=== PATIENT | female | born 1965 | race Caucasian/White ===

== ENCOUNTER 2016-09-21 16:41 | Emergency (ER) | payer MEDICARE ==
[2016-09-21] MEDS ORDERED: AZITHROMYCIN 250 MG TAB As Ordered ONE (18:46)
[2016-09-21] MEDS ORDERED: predniSONE 20 MG TAB As Ordered ONE (18:47)
[2016-09-21] MEDS ORDERED: IBUPROFEN 800 MG TAB As Ordered ONE (18:47)
[2016-09-21] MEDS ORDERED: IPRATROPIUM 0.5MG/ALBUTEROL 2.5MG INH SOL UD 3ML (DUONEB)(J7620) As Ordered ONE (18:56)
--- NOTE | 2016-09-21 19:09 | REP ---
CHEST, TWO VIEWS: Two views of the chest are performed and compared to prior study of 10/10/2013. There is mild streaky left lower infiltrate in the retrocardiac region. Right lung appears clear. The heart is normal in size. Mediastinal silhouette is unremarkable. There are mild degenerative changes of the spine. IMPRESSION: Mild streaky left lower lobe infiltrate. Signed by Charlie Stokes MD 09/21/2016 07:18 P
[2016-09-21] MEDS ORDERED: LIDOCAINE 1% MDV 20ML VIAL As Ordered ONE (19:20)
[2016-09-21] MEDS ORDERED: cefTRIAXone SOD 1 GM VIAL (J0696) As Ordered ONE (19:20)
[2016-09-21] MEDS ORDERED: ALBUTEROL 90 MCG/ACT 8GM HFA INHALER As Ordered ONE (19:23)
[2016-09-21] MEDS ORDERED: ACETAMINOPHEN 325 MG TAB As Ordered ONE (19:55)
--- NOTE | 2016-09-21 20:34 | EDDOCDS ---
Nurse's Notes [facility] Name: Honey Carrasco Age: 50 yrs Sex: Female : 1965 Arrival Date: 09/21/2016 Time: 16:41 Bed Private MD: NO PRIMARY PHYSICIAN, . Diagnosis: Pneumonia due to other specified bacteria-left lower lobe;Cough;Fever, unspecified Presentation: 09/21 16:44 Presenting complaint: Patient states: pt c/o cough and "wheezing." onset of symptoms ead Monday. Pt states "my doctor told me to come here.". Adult Sepsis Screening: The patient does not have new or worsening altered mentation. Patient's respiratory rate is less than 22. Systolic blood pressure is greater than 100. Patient has a qSOFA score of 0- Negative Sepsis Screen. Suicide/Homicide risk assessment- the patient denies having any suicidal and/or homicidal ideations and does not present with any other emotional, behavioral or mental health complaints. 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 Transition of care: patient was not received from another setting of care. 16:44 Acuity: JUDITH Level 3 ead 16:44 Method Of Arrival: Walkin/Carried/Asstd ead Triage Assessment: 16:46 General: Appears in no apparent distress, Behavior is appropriate for age, cooperative. ead Pain: Location: chest Pain currently is 3 out of 10 on a pain scale. HIV screening NA for this visit Offered previously. Neurological: No deficits noted. EENT: Reports nasal congestion. Respiratory: Reports cough that is pain with cough. Derm: Skin is pink, warm & dry. DAT INSTRUCTOR: 16:46 LMP N/A - Post-menopause ead Historical: - Allergies: Naproxen (Rash); - Home Meds: 1. Vitamin C Oral daily - PMHx: none; - PSHx: ; Cataract Surgery- Bilateral; - Social history: Smoking status: Patient states was never smoker of tobacco. No barriers to communication noted, The patient speaks fluent Syrian, Speaks appropriately for age. - Family history: Not pertinent. - : The pt / caregiver states he / she is not on anticoagulants. Home medication list is obtained from the patient. - Exposure Risk Screening:: None identified. Screenin:50 Screening information is obtained from the patient. Fall risk: No risks identified. ttb Assistance ADL's: requires no assistance with activities of daily living. Abuse/DV Screen: The patient / caregiver reports he/she is: not in a situation that causes fear, pain or injury. Nutritional screening: No deficits noted. Advance Directives: Currently, there is no health care proxy. home support is adequate. Assessment: 18:50 Adult Sepsis Screening: The patient does not have new or worsening altered mentation. ttb Patient's respiratory rate is less than 22. Systolic blood pressure is greater than 100. Patient has a qSOFA score of 0- Negative Sepsis Screen. General: Appears in no apparent distress, uncomfortable, well nourished, well groomed, Behavior is appropriate for age, cooperative, pleasant. Neurological: Level of Consciousness is awake, alert. EENT: Reports nasal congestion nasal discharge. Cardiovascular: Chest pain is denied. Respiratory: Airway is patent Respiratory effort is even, unlabored, shallow, Reports shortness of breath cough that is the patient has moderate shortness of breath. Derm: Skin is normal. 19:28 Reassessment: Patient appears in no apparent distress at this time. pt given meds as ttb ordered and states she is comfortable going home. Breathing improved after treatments.. 20:03 Reassessment: Patient appears in no apparent distress at this time. Patient states ttb feeling better. pt states she feels comfortable going home -- however still feels ill. Family here to drive pt home. Temp increased -- PA aware. Meds given per orders. . Neurological: Level of Consciousness is awake, alert. Respiratory: Airway is patent Respiratory effort is even, unlabored, Respiratory pattern is regular, symmetrical, Reports shortness of breath improved since arrival. Vital Signs: 16:42 BP 107 / 76; Pulse 101; Resp 20; Temp 100.3(O); Pulse Ox 96% on R/A; Weight 79.38 kg dd6 (R); 20:03 BP 125 / 69; Pulse 108; Resp 20; Temp 101.3(TE); Pulse Ox 95% on R/A; Pain 2/10; ttb Vitals: 16:42 Log In Time: September 21, 2016 at 16:40. dd6 ED Course: 16:42 Patient visited by Scott Lester PCA. dd6 16:42 NO PRIMARY PHYSICIAN, . is Private Physician. dd6 16:42 Patient moved to Waiting dd6 16:43 Patient moved to Pre RCE dd6 16:45 Triage Initiated ead 17:27 Patient moved to Triage 1 ead 17:55 Suraj Michel PA is PHCP. mo1 17:55 Shyanne Kaur MD is Attending Physician. mo1 18:13 Patient visited by Clare Monroe RN. ead 18:22 Patient visited by Suraj Michel PA. mo1 18:47 Patient moved to PD2 / 27 mlb1 18:50 The patient / caregiver is instructed regarding the plan of care and ED course. Patient ttb has correct armband on for positive identification. 18:51 [facility] [facility] [place] was scanned into [employer] and attached to record. jpb 18:52 Patient visited by Mine Calhoun RN. ttb 19:14 Chest, 2 View (pa\\E\\lat) Returned. EDMS 19:29 Patient visited by Mine Calhoun RN. ttb 20:03 No IV's were initiated during this patient's visit. No procedures done that require ttb assistance. Administered Medications: 18:50 Drug: predniSONE 60 mg [prednisone 20 mg tablet (3 tabs)] Route: PO; ttb 18:50 Drug: azithromycin 500 mg [azithromycin 250 mg tablet (2 tabs)] Route: PO; ttb 18:50 Drug: Ibuprofen 800 mg [ibuprofen 800 mg tablet (1 tabs)] Route: PO; ttb 19:00 Drug: Albuterol-Ipratropium 3 ml [ipratropium-albuterol 0.5 mg-3 mg(2.5 mg base)/3 mL dk nebulization soln (3 mL)] Route: Inhalation; 19:27 Drug: cefTRIAXone 1 grams [ceftriaxone 1 gram solution for injection (1 grams)] Route: ttb IM; Site: left gluteus; 20:05 Follow up: Response: No Adverse Reaction ttb 19:27 Drug: Ventolin 2 puffs [Ventolin HFA 90 mcg/actuation aerosol inhaler (2 puffs)] {Note: ttb dispensed home.} Route: Inhalation; 19:52 CANCELLED (already givenn): Ibuprofen 800 mg PO once ttb 20:03 Drug: Acetaminophen 975 mg [acetaminophen 325 mg tablet (3 tabs)] Route: PO; ttb RT: 19:00 Initial Med Neb Given as ordered Patient was instructed and evaluated on procedure dk Patient tolerated procedure well without adverse effect. Oxygen is room air. Respiratory: Breath sounds are clear Breath sounds are coarse in right posterior lower lobe. Order Results: Radiology Order: Chest, 2 View (pa\\E\\lat) Test: Chest, 2 View (pa\\E\\lat) REASON FOR EXAMINATION: Cough; CHEST, TWO VIEWS:; ; Two views of the chest are performed and compared to prior study of 10/10/2013.; ; There is mild streaky left lower infiltrate in the retrocardiac region. Right; lung appears clear. The heart is normal in size. Mediastinal silhouette is; unremarkable. There are mild degenerative changes of the spine.; ; IMPRESSION:; Mild streaky left lower lobe infiltrate.; ; Unreviewed; Outcome: 19:22 Discharge ordered by Provider. mo1 20:03 Discharge Assessment: Patient awake, alert and oriented x 3. No cognitive and/or ttb functional deficits noted. Patient verbalized understanding of disposition instructions. Patient awake and alert. patient administered narcotics - no. The following High Risk Discharge criteria are identified: None. Discharged to home ambulatory, with family. Condition: stable Condition: improved. Discharge instructions given to patient, family, Instructed on discharge instructions, follow up and referral plans. medication usage, no driving heavy equipment, no drinking with medication, Demonstrated understanding of instructions, medications, Pt was receptive of discharge instructions/ teaching. Prescriptions given X albuterol dispensed. No special radiology studies were completed. Property :Personal belongings accompany Pt. 20:06 Patient left the ED. ttb Signatures: Dispatcher [employer] EDSuraj Parsons RN RN mlb1 Mary Loya,RT RT dk Scott Lester, HOOP MAKER MACHINE HOOP MAKER MACHINE dd6 [place] Teresa RN RN ttb Suraj Michel PA PA mo1 Clare MonroeRN ROMAIN bland MTDD
--- NOTE | 2016-09-21 20:34 | EDDOCDS ---
Physician Documentation [facility] Name: Honey Carrasco Age: 50 yrs Sex: Female : 1965 Arrival Date: 09/21/2016 Time: 16:41 Bed PD Private MD: NO PRIMARY PHYSICIAN, . Disposition: 09/21/16 19:22 Discharged to Home/Self Care. Impression: Pneumonia due to other specified bacteria - left lower lobe, Cough, Fever, unspecified. - Condition is Stable. - Discharge Instructions: Fever, Adult, Pneumonia, Adult, Cough, Adult, [id number]. - Prescriptions for Zithromax Z- Sea 250 mg Oral Tablet - take 1 tablet by ORAL route as directed for 5 days Day 1- take two tablets once. Day 2, 3, 4 , 5 take one tablet once daily.; 6 tablet. Albuterol Sulfate 90 mcg/actuation Inhalation HFA Aerosol Inhaler - inhale 2 puff by INHALATION route every 4 hours As needed; 1 Inhaler. Prednisone 20 mg Oral Tablet - take 2 tablet by ORAL route once daily for 5 days; 10 tablet. codeine- guaifenesin 7.5-225 mg/5 mL Oral liquid - take 5 milliliter by ORAL route every 6 hours as needed; 200 milliliter. - Medication Reconciliation, Local Pharmacy Hours form. - Follow up: Private Physician; When: Call to arrange an appointment; Reason: Recheck today's complaints, Continuance of care. - Problem is new. - Symptoms are unchanged. - Notes: continue with tylenol/motrin for fever, albuterol inhaler 1-2 puffs every 4-6hrs, follow up with pmd in 2 days Historical: - Allergies: Naproxen (Rash); - Home Meds: 1. Vitamin C Oral daily - PMHx: none; - PSHx: ; Cataract Surgery- Bilateral; - Social history: Smoking status: Patient states was never smoker of tobacco. No barriers to communication noted, The patient speaks fluent Syriac, Speaks appropriately for age. - Family history: Not pertinent. - : The pt / caregiver states he / she is not on anticoagulants. Home medication list is obtained from the patient. - Exposure Risk Screening:: None identified. INCIDENT MANAGER: 09/21 16:46 LMP N/A - Post-menopause ead Vital Signs: 16:42 BP 107 / 76; Pulse 101; Resp 20; Temp 100.3(O); Pulse Ox 96% on R/A; Weight 79.38 kg / dd6 175 lbs (R); 20:03 BP 125 / 69; Pulse 108; Resp 20; Temp 101.3(TE); Pulse Ox 95% on R/A; Pain 2/10; ttb MDM: 18:00 Chest, 2 View (pa\E\lat) Ordered. EDMS 18:29 predniSONE 60 mg PO once; administer with food or milk ordered. mo1 18:29 Albuterol-Ipratropium 3 ml Inhalation once ordered. mo1 18:29 azithromycin 500 mg PO once ordered. mo1 18:29 Ibuprofen 800 mg PO once ordered. mo1 18:38 Financial registration complete. dm19 18:51 [facility] Payment Agreement was scanned into [employer] and attached to record. jpb 19:17 cefTRIAXone 1 grams IM once ordered. mo1 19:20 Ventolin Inhaler 2 puffs Inhalation once; 1-2 puffs every 4-6hrs ordered. mo1 19:53 Acetaminophen Tablet 975 mg PO once ordered. mo1 Administered Medications: 18:50 Drug: predniSONE 60 mg [prednisone 20 mg tablet (3 tabs)] Route: PO; ttb 18:50 Drug: azithromycin 500 mg [azithromycin 250 mg tablet (2 tabs)] Route: PO; ttb 18:50 Drug: Ibuprofen 800 mg [ibuprofen 800 mg tablet (1 tabs)] Route: PO; ttb 19:00 Drug: Albuterol-Ipratropium 3 ml [ipratropium-albuterol 0.5 mg-3 mg(2.5 mg base)/3 mL dk nebulization soln (3 mL)] Route: Inhalation; 19:27 Drug: cefTRIAXone 1 grams [ceftriaxone 1 gram solution for injection (1 grams)] Route: ttb IM; Site: left gluteus; 20:05 Follow up: Response: No Adverse Reaction ttb 19:27 Drug: Ventolin 2 puffs [Ventolin HFA 90 mcg/actuation aerosol inhaler (2 puffs)] {Note: ttb dispensed home.} Route: Inhalation; 19:52 CANCELLED (already givenn): Ibuprofen 800 mg PO once ttb 20:03 Drug: Acetaminophen 975 mg [acetaminophen 325 mg tablet (3 tabs)] Route: PO; ttb Signatures: Dispatcher [employer] Leonard Matos Teresa, RN RN ttb Suraj Michel PA PA mo1 Clare Monroe RN RN Gris Ruiz dm19 Mary Loya RT dk The chart was reviewed and I authenticate all verbal orders and agree with the evaluation and treatment provided.Corrections: (The following items were deleted from the chart) 19:52 19:49 Ibuprofen 800 mg PO once ordered. mo1 ttb Attachments: 18:51 [facility] Payment Agreement jpb MTDD
--- NOTE | 2016-09-21 20:34 | EDDOCDS ---
Nurse's Notes [facility] Name: Honey Carrasco Age: 50 yrs Sex: Female : 1965 Arrival Date: 09/21/2016 Time: 16:41 Bed Private MD: NO PRIMARY PHYSICIAN, . Diagnosis: Pneumonia due to other specified bacteria-left lower lobe;Cough;Fever, unspecified Presentation: 09/21 16:44 Presenting complaint: Patient states: pt c/o cough and "wheezing." onset of symptoms ead Monday. Pt states "my doctor told me to come here.". Adult Sepsis Screening: The patient does not have new or worsening altered mentation. Patient's respiratory rate is less than 22. Systolic blood pressure is greater than 100. Patient has a qSOFA score of 0- Negative Sepsis Screen. Suicide/Homicide risk assessment- the patient denies having any suicidal and/or homicidal ideations and does not present with any other emotional, behavioral or mental health complaints. Status: Patient is not a service employee or dependent. Transition of care: patient was not received from another setting of care. 16:44 Acuity: JUDITH Level 3 ead 16:44 Method Of Arrival: Walkin/Carried/Asstd ead Triage Assessment: 16:46 General: Appears in no apparent distress, Behavior is appropriate for age, cooperative. ead Pain: Location: chest Pain currently is 3 out of 10 on a pain scale. HIV screening NA for this visit Offered previously. Neurological: No deficits noted. EENT: Reports nasal congestion. Respiratory: Reports cough that is pain with cough. Derm: Skin is pink, warm & dry. SECTION CHIEF: 16:46 LMP N/A - Post-menopause ead Historical: - Allergies: Naproxen (Rash); - Home Meds: 1. Vitamin C Oral daily - PMHx: none; - PSHx: ; Cataract Surgery- Bilateral; - Social history: Smoking status: Patient states was never smoker of tobacco. No barriers to communication noted, The patient speaks fluent Canadian, Speaks appropriately for age. - Family history: Not pertinent. - : The pt / caregiver states he / she is not on anticoagulants. Home medication list is obtained from the patient. - Exposure Risk Screening:: None identified. Screenin:50 Screening information is obtained from the patient. Fall risk: No risks identified. ttb Assistance ADL's: requires no assistance with activities of daily living. Abuse/DV Screen: The patient / caregiver reports he/she is: not in a situation that causes fear, pain or injury. Nutritional screening: No deficits noted. Advance Directives: Currently, there is no health care proxy. home support is adequate. Assessment: 18:50 Adult Sepsis Screening: The patient does not have new or worsening altered mentation. ttb Patient's respiratory rate is less than 22. Systolic blood pressure is greater than 100. Patient has a qSOFA score of 0- Negative Sepsis Screen. General: Appears in no apparent distress, uncomfortable, well nourished, well groomed, Behavior is appropriate for age, cooperative, pleasant. Neurological: Level of Consciousness is awake, alert. EENT: Reports nasal congestion nasal discharge. Cardiovascular: Chest pain is denied. Respiratory: Airway is patent Respiratory effort is even, unlabored, shallow, Reports shortness of breath cough that is the patient has moderate shortness of breath. Derm: Skin is normal. 19:28 Reassessment: Patient appears in no apparent distress at this time. pt given meds as ttb ordered and states she is comfortable going home. Breathing improved after treatments.. 20:03 Reassessment: Patient appears in no apparent distress at this time. Patient states ttb feeling better. pt states she feels comfortable going home -- however still feels ill. Family here to drive pt home. Temp increased -- PA aware. Meds given per orders. . Neurological: Level of Consciousness is awake, alert. Respiratory: Airway is patent Respiratory effort is even, unlabored, Respiratory pattern is regular, symmetrical, Reports shortness of breath improved since arrival. Vital Signs: 16:42 BP 107 / 76; Pulse 101; Resp 20; Temp 100.3(O); Pulse Ox 96% on R/A; Weight 79.38 kg dd6 (R); 20:03 BP 125 / 69; Pulse 108; Resp 20; Temp 101.3(TE); Pulse Ox 95% on R/A; Pain 2/10; ttb Vitals: 16:42 Log In Time: September 21, 2016 at 16:40. dd6 ED Course: 16:42 Patient visited by Scott Lester PCA. dd6 16:42 NO PRIMARY PHYSICIAN, . is Private Physician. dd6 16:42 Patient moved to Waiting dd6 16:43 Patient moved to Pre RCE dd6 16:45 Triage Initiated ead 17:27 Patient moved to Triage 1 ead 17:55 Suraj Michel PA is PHCP. mo1 17:55 Shyanne Kaur MD is Attending Physician. mo1 18:13 Patient visited by Clare Monroe RN. ead 18:22 Patient visited by Suraj Michel PA. mo1 18:47 Patient moved to PD2 / 27 mlb1 18:50 The patient / caregiver is instructed regarding the plan of care and ED course. Patient ttb has correct armband on for positive identification. 18:51 [facility] [place] Agreement was scanned into [employer] and attached to record. jpb 18:52 Patient visited by Mine Calhoun RN. ttb 19:14 Chest, 2 View (pa\\E\\lat) Returned. EDMS 19:29 Patient visited by Mine Calhoun RN. ttb 20:03 No IV's were initiated during this patient's visit. No procedures done that require ttb assistance. Administered Medications: 18:50 Drug: predniSONE 60 mg [prednisone 20 mg tablet (3 tabs)] Route: PO; ttb 18:50 Drug: azithromycin 500 mg [azithromycin 250 mg tablet (2 tabs)] Route: PO; ttb 18:50 Drug: Ibuprofen 800 mg [ibuprofen 800 mg tablet (1 tabs)] Route: PO; ttb 19:00 Drug: Albuterol-Ipratropium 3 ml [ipratropium-albuterol 0.5 mg-3 mg(2.5 mg base)/3 mL dk nebulization soln (3 mL)] Route: Inhalation; 19:27 Drug: cefTRIAXone 1 grams [ceftriaxone 1 gram solution for injection (1 grams)] Route: ttb IM; Site: left gluteus; 20:05 Follow up: Response: No Adverse Reaction ttb 19:27 Drug: Ventolin 2 puffs [Ventolin HFA 90 mcg/actuation aerosol inhaler (2 puffs)] {Note: ttb dispensed home.} Route: Inhalation; 19:52 CANCELLED (already givenn): Ibuprofen 800 mg PO once ttb 20:03 Drug: Acetaminophen 975 mg [acetaminophen 325 mg tablet (3 tabs)] Route: PO; ttb RT: 19:00 Initial Med Neb Given as ordered Patient was instructed and evaluated on procedure dk Patient tolerated procedure well without adverse effect. Oxygen is room air. Respiratory: Breath sounds are clear Breath sounds are coarse in right posterior lower lobe. Order Results: Radiology Order: Chest, 2 View (pa\\E\\lat) Test: Chest, 2 View (pa\\E\\lat) REASON FOR EXAMINATION: Cough; CHEST, TWO VIEWS:; ; Two views of the chest are performed and compared to prior study of 10/10/2013.; ; There is mild streaky left lower infiltrate in the retrocardiac region. Right; lung appears clear. The heart is normal in size. Mediastinal silhouette is; unremarkable. There are mild degenerative changes of the spine.; ; IMPRESSION:; ; Mild streaky left lower lobe infiltrate.; ; ; Signed by; Charlie Stokes MD 09/21/2016 07:18 P; Outcome: 19:22 Discharge ordered by Provider. mo1 20:03 Discharge Assessment: Patient awake, alert and oriented x 3. No cognitive and/or ttb functional deficits noted. Patient verbalized understanding of disposition instructions. Patient awake and alert. patient administered narcotics - no. The following High Risk Discharge criteria are identified: None. Discharged to home ambulatory, with family. Condition: stable Condition: improved. Discharge instructions given to patient, family, Instructed on discharge instructions, follow up and referral plans. medication usage, no driving heavy equipment, no drinking with medication, Demonstrated understanding of instructions, medications, Pt was receptive of discharge instructions/ teaching. Prescriptions given X albuterol dispensed. No special radiology studies were completed. Property :Personal belongings accompany Pt. 20:06 Patient left the ED. ttb 20:31 Patient left the ED. ttb Signatures: Dispatcher [employer] EDNM Suraj Nguyễn RN RN mlb1 Mary Loya,RT RT Scott Guevara, ROSARIO ACTUARIAL ASSISTANT dd6 [place] Teresa, RN RN ttb Suraj Michel PA PA mo1 Clare Monroe,RN RN edwina MTDD
--- NOTE | 2016-09-21 20:34 | EDDOCDS ---
Physician Documentation [facility] Name: Honey Carrasco Age: 50 yrs Sex: Female : 1965 Arrival Date: 09/21/2016 Time: 16:41 Bed PD Private MD: NO PRIMARY PHYSICIAN, . Disposition: 09/21/16 19:22 Discharged to Home/Self Care. Impression: Pneumonia due to other specified bacteria - left lower lobe, Cough, Fever, unspecified. - Condition is Stable. - Discharge Instructions: Fever, Adult, Pneumonia, Adult, Cough, Adult, [id number]. - Prescriptions for Zithromax Z- Sea 250 mg Oral Tablet - take 1 tablet by ORAL route as directed for 5 days Day 1- take two tablets once. Day 2, 3, 4 , 5 take one tablet once daily.; 6 tablet. Albuterol Sulfate 90 mcg/actuation Inhalation HFA Aerosol Inhaler - inhale 2 puff by INHALATION route every 4 hours As needed; 1 Inhaler. hydrocodone- guaifenesin 2.5-200 mg/5 mL Oral solution - take 10 milliliter by ORAL route every 6 hours; 200 milliliter. Prednisone 20 mg Oral Tablet - take 2 tablet by ORAL route once daily for 5 days; 10 tablet. - Medication Reconciliation, Local Pharmacy Hours form. - Follow up: Private Physician; When: Call to arrange an appointment; Reason: Recheck today's complaints, Continuance of care. - Problem is new. - Symptoms are unchanged. - Notes: continue with tylenol/motrin for fever, albuterol inhaler 1-2 puffs every 4-6hrs, follow up with pmd in 2 days Historical: - Allergies: Naproxen (Rash); - Home Meds: 1. Vitamin C Oral daily - PMHx: none; - PSHx: ; Cataract Surgery- Bilateral; - Social history: Smoking status: Patient states was never smoker of tobacco. No barriers to communication noted, The patient speaks fluent Syrian, Speaks appropriately for age. - Family history: Not pertinent. - : The pt / caregiver states he / she is not on anticoagulants. Home medication list is obtained from the patient. - Exposure Risk Screening:: None identified. 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 EDMS 18:29 predniSONE 60 mg PO once; administer with food or milk ordered. mo1 18:29 Albuterol-Ipratropium 3 ml Inhalation once ordered. mo1 18:29 azithromycin 500 mg PO once ordered. mo1 18:29 Ibuprofen 800 mg PO once ordered. mo1 18:38 Financial registration complete. dm19 18:51 [facility] Payment Agreement was scanned into [employer] and attached to record. jpb 19:17 cefTRIAXone 1 grams IM once ordered. mo1 19:20 Ventolin Inhaler 2 puffs Inhalation once; 1-2 puffs every 4-6hrs ordered. mo1 19:53 Acetaminophen Tablet 975 mg PO once ordered. mo1 Administered Medications: 18:50 Drug: predniSONE 60 mg [prednisone 20 mg tablet (3 tabs)] Route: PO; ttb 18:50 Drug: azithromycin 500 mg [azithromycin 250 mg tablet (2 tabs)] Route: PO; ttb 18:50 Drug: Ibuprofen 800 mg [ibuprofen 800 mg tablet (1 tabs)] Route: PO; ttb 19:00 Drug: Albuterol-Ipratropium 3 ml [ipratropium-albuterol 0.5 mg-3 mg(2.5 mg base)/3 mL dk nebulization soln (3 mL)] Route: Inhalation; 19:27 Drug: cefTRIAXone 1 grams [ceftriaxone 1 gram solution for injection (1 grams)] Route: ttb IM; Site: left gluteus; 20:05 Follow up: Response: No Adverse Reaction ttb 19:27 Drug: Ventolin 2 puffs [Ventolin HFA 90 mcg/actuation aerosol inhaler (2 puffs)] {Note: ttb dispensed home.} Route: Inhalation; 19:52 CANCELLED (already givenn): Ibuprofen 800 mg PO once ttb 20:03 Drug: Acetaminophen 975 mg [acetaminophen 325 mg tablet (3 tabs)] Route: PO; ttb Signatures: Dispatcher [employer] Leonard Matos Teresa RN RN ttb Suraj Michel PA PA mo1 Clare MonroeRN RN Gris Ruiz dm19 Mary Loya RT dk The chart was reviewed and I authenticate all verbal orders and agree with the evaluation and treatment provided.Corrections: (The following items were deleted from the chart) 19:52 19:49 Ibuprofen 800 mg PO once ordered. mo1 ttb Attachments: 18:51 [facility] [place] jpb MTDD
--- NOTE | 2016-09-23 21:33 | EDDOCDS ---
Physician Documentation [facility] Name: Honey Carrasco Age: 50 yrs Sex: Female : 1965 Arrival Date: 09/21/2016 Time: 16:41 Bed PD Private MD: NO PRIMARY PHYSICIAN, . Disposition: 09/21/16 19:22 Discharged to Home/Self Care. Impression: Pneumonia due to other specified bacteria - left lower lobe, Cough, Fever, unspecified. - Condition is Stable. - Discharge Instructions: Fever, Adult, Pneumonia, Adult, Cough, Adult, [id number]. - Prescriptions for Zithromax Z- Sea 250 mg Oral Tablet - take 1 tablet by ORAL route as directed for 5 days Day 1- take two tablets once. Day 2, 3, 4 , 5 take one tablet once daily.; 6 tablet. Albuterol Sulfate 90 mcg/actuation Inhalation HFA Aerosol Inhaler - inhale 2 puff by INHALATION route every 4 hours As needed; 1 Inhaler. Prednisone 20 mg Oral Tablet - take 2 tablet by ORAL route once daily for 5 days; 10 tablet. codeine- guaifenesin 7.5-225 mg/5 mL Oral liquid - take 5 milliliter by ORAL route every 6 hours as needed; 200 milliliter. - Medication Reconciliation, Local Pharmacy Hours form. - Follow up: Private Physician; When: Call to arrange an appointment; Reason: Recheck today's complaints, Continuance of care. - Problem is new. - Symptoms are unchanged. - Notes: continue with tylenol/motrin for fever, albuterol inhaler 1-2 puffs every 4-6hrs, follow up with pmd in 2 days Historical: - Allergies: Naproxen (Rash); - Home Meds: 1. Vitamin C Oral daily - PMHx: none; - PSHx: ; Cataract Surgery- Bilateral; - Social history: Smoking status: Patient states was never smoker of tobacco. No barriers to communication noted, The patient speaks fluent Czech, Speaks appropriately for age. - Family history: Not pertinent. - : The pt / caregiver states he / she is not on anticoagulants. Home medication list is obtained from the patient. - Exposure Risk Screening:: None identified. 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 EDMS 18:29 predniSONE 60 mg PO once; administer with food or milk ordered. mo1 18:29 Albuterol-Ipratropium 3 ml Inhalation once ordered. mo1 18:29 azithromycin 500 mg PO once ordered. mo1 18:29 Ibuprofen 800 mg PO once ordered. mo1 18:38 Financial registration complete. dm19 18:51 [facility] Payment Agreement was scanned into [employer] and attached to record. jpb 19:17 cefTRIAXone 1 grams IM once ordered. mo1 19:20 Ventolin Inhaler 2 puffs Inhalation once; 1-2 puffs every 4-6hrs ordered. mo1 19:53 Acetaminophen Tablet 975 mg PO once ordered. mo1 09/23 08:33 T-Sheet-- Draft Copy was scanned into [employer] and attached to record. gb Administered Medications: 09/21 18:50 Drug: predniSONE 60 mg [prednisone 20 mg tablet (3 tabs)] Route: PO; ttb 18:50 Drug: azithromycin 500 mg [azithromycin 250 mg tablet (2 tabs)] Route: PO; ttb 18:50 Drug: Ibuprofen 800 mg [ibuprofen 800 mg tablet (1 tabs)] Route: PO; ttb 19:00 Drug: Albuterol-Ipratropium 3 ml [ipratropium-albuterol 0.5 mg-3 mg(2.5 mg base)/3 mL dk nebulization soln (3 mL)] Route: Inhalation; 19:27 Drug: cefTRIAXone 1 grams [ceftriaxone 1 gram solution for injection (1 grams)] Route: ttb IM; Site: left gluteus; 20:05 Follow up: Response: No Adverse Reaction ttb 19:27 Drug: Ventolin 2 puffs [Ventolin HFA 90 mcg/actuation aerosol inhaler (2 puffs)] {Note: ttb dispensed home.} Route: Inhalation; 19:52 CANCELLED (already givenn): Ibuprofen 800 mg PO once ttb 20:03 Drug: Acetaminophen 975 mg [acetaminophen 325 mg tablet (3 tabs)] Route: PO; ttb Signatures: Dispatcher [employer] Lexus Castañeda, Reg Reg gb Perico Mine Webb RN RN ttb Suraj Michel PA PA mo1 Clare Monroe RN RN eaGris Caal dm19 Mary Loya RT dk The chart was reviewed and I authenticate all verbal orders and agree with the evaluation and treatment provided.Corrections: (The following items were deleted from the chart) 19:52 19:49 Ibuprofen 800 mg PO once ordered. mo1 ttb Attachments: 18:51 [facility] [place] Payment Agreement jpb 09/23 08:33 T-Sheet-- Draft Copy gb Chart Complete MTDD
--- NOTE | 2016-09-23 21:33 | EDDOCDS ---
Nurse's Notes [facility] Name: Honey Carrasco Age: 50 yrs Sex: Female : 1965 Arrival Date: 09/21/2016 Time: 16:41 Bed Private MD: NO PRIMARY PHYSICIAN, . Diagnosis: Pneumonia due to other specified bacteria-left lower lobe;Cough;Fever, unspecified Presentation: 09/21 16:44 Presenting complaint: Patient states: pt c/o cough and "wheezing." onset of symptoms ead Monday. Pt states "my doctor told me to come here.". Adult Sepsis Screening: The patient does not have new or worsening altered mentation. Patient's respiratory rate is less than 22. Systolic blood pressure is greater than 100. Patient has a qSOFA score of 0- Negative Sepsis Screen. Suicide/Homicide risk assessment- the patient denies having any suicidal and/or homicidal ideations and does not present with any other emotional, behavioral or mental health complaints. 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 Transition of care: patient was not received from another setting of care. 16:44 Acuity: JUDITH Level 3 ead 16:44 Method Of Arrival: Walkin/Carried/Asstd ead Triage Assessment: 16:46 General: Appears in no apparent distress, Behavior is appropriate for age, cooperative. ead Pain: Location: chest Pain currently is 3 out of 10 on a pain scale. HIV screening NA for this visit Offered previously. Neurological: No deficits noted. EENT: Reports nasal congestion. Respiratory: Reports cough that is pain with cough. Derm: Skin is pink, warm & dry. 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 Vitamin C Oral daily - PMHx: none; - PSHx: ; Cataract Surgery- Bilateral; - Social history: Smoking status: Patient states was never smoker of tobacco. No barriers to communication noted, The patient speaks fluent Mozambican, Speaks appropriately for age. - Family history: Not pertinent. - : The pt / caregiver states he / she is not on anticoagulants. Home medication list is obtained from the patient. - Exposure Risk Screening:: None identified. Screenin:50 Screening information is obtained from the patient. Fall risk: No risks identified. ttb Assistance ADL's: requires no assistance with activities of daily living. Abuse/DV Screen: The patient / caregiver reports he/she is: not in a situation that causes fear, pain or injury. Nutritional screening: No deficits noted. Advance Directives: Currently, there is no health care proxy. home support is adequate. Assessment: 18:50 Adult Sepsis Screening: The patient does not have new or worsening altered mentation. ttb Patient's respiratory rate is less than 22. Systolic blood pressure is greater than 100. Patient has a qSOFA score of 0- Negative Sepsis Screen. General: Appears in no apparent distress, uncomfortable, well nourished, well groomed, Behavior is appropriate for age, cooperative, pleasant. Neurological: Level of Consciousness is awake, alert. EENT: Reports nasal congestion nasal discharge. Cardiovascular: Chest pain is denied. Respiratory: Airway is patent Respiratory effort is even, unlabored, shallow, Reports shortness of breath cough that is the patient has moderate shortness of breath. Derm: Skin is normal. 19:28 Reassessment: Patient appears in no apparent distress at this time. pt given meds as ttb ordered and states she is comfortable going home. Breathing improved after treatments.. 20:03 Reassessment: Patient appears in no apparent distress at this time. Patient states ttb feeling better. pt states she feels comfortable going home -- however still feels ill. Family here to drive pt home. Temp increased -- PA aware. Meds given per orders. . Neurological: Level of Consciousness is awake, alert. Respiratory: Airway is patent Respiratory effort is even, unlabored, Respiratory pattern is regular, symmetrical, Reports shortness of breath improved since arrival. Vital Signs: 16:42 BP 107 / 76; Pulse 101; Resp 20; Temp 100.3(O); Pulse Ox 96% on R/A; Weight 79.38 kg dd6 (R); 20:03 BP 125 / 69; Pulse 108; Resp 20; Temp 101.3(TE); Pulse Ox 95% on R/A; Pain 2/10; ttb Vitals: 16:42 Log In Time: September 21, 2016 at 16:40. dd6 ED Course: 16:42 Patient visited by Scott Lester PCA. dd6 16:42 NO PRIMARY PHYSICIAN, . is Private Physician. dd6 16:42 Patient moved to Waiting dd6 16:43 Patient moved to Pre RCE dd6 16:45 Triage Initiated ead 17:27 Patient moved to Triage 1 ead 17:55 Suraj Michel PA is PHCP. mo1 17:55 Shyanne Kaur MD is Attending Physician. mo1 18:13 Patient visited by Clare Monroe RN. ead 18:22 Patient visited by Suraj Michel PA. mo1 18:47 Patient moved to PD2 / 27 mlb1 18:50 The patient / caregiver is instructed regarding the plan of care and ED course. Patient ttb has correct armband on for positive identification. 18:51 [facility] [place] was scanned into [email or web address] and attached to record. jpb 18:52 Patient visited by Mine Calhoun RN. ttb 19:14 Chest, 2 View (pa\\E\\lat) Returned. EDMS 19:29 Patient visited by Mine Calhoun RN. ttb 20:03 No IV's were initiated during this patient's visit. No procedures done that require ttb assistance. 09/23 08:33 T-Sheet-- Draft Copy was scanned into [email or web address] and attached to record. gb Administered Medications: 09/21 18:50 Drug: predniSONE 60 mg [prednisone 20 mg tablet (3 tabs)] Route: PO; ttb 18:50 Drug: azithromycin 500 mg [azithromycin 250 mg tablet (2 tabs)] Route: PO; ttb 18:50 Drug: Ibuprofen 800 mg [ibuprofen 800 mg tablet (1 tabs)] Route: PO; ttb 19:00 Drug: Albuterol-Ipratropium 3 ml [ipratropium-albuterol 0.5 mg-3 mg(2.5 mg base)/3 mL dk nebulization soln (3 mL)] Route: Inhalation; 19:27 Drug: cefTRIAXone 1 grams [ceftriaxone 1 gram solution for injection (1 grams)] Route: ttb IM; Site: left gluteus; 20:05 Follow up: Response: No Adverse Reaction ttb 19:27 Drug: Ventolin 2 puffs [Ventolin HFA 90 mcg/actuation aerosol inhaler (2 puffs)] {Note: ttb dispensed home.} Route: Inhalation; 19:52 CANCELLED (already givenn): Ibuprofen 800 mg PO once ttb 20:03 Drug: Acetaminophen 975 mg [acetaminophen 325 mg tablet (3 tabs)] Route: PO; ttb RT: 19:00 Initial Med Neb Given as ordered Patient was instructed and evaluated on procedure dk Patient tolerated procedure well without adverse effect. Oxygen is room air. Respiratory: Breath sounds are clear Breath sounds are coarse in right posterior lower lobe. Order Results: Radiology Order: Chest, 2 View (pa\\E\\lat) Test: Chest, 2 View (pa\\E\\lat) REASON FOR EXAMINATION: Cough; CHEST, TWO VIEWS:; ; Two views of the chest are performed and compared to prior study of 10/10/2013.; ; There is mild streaky left lower infiltrate in the retrocardiac region. Right; lung appears clear. The heart is normal in size. Mediastinal silhouette is; unremarkable. There are mild degenerative changes of the spine.; ; IMPRESSION:; ; Mild streaky left lower lobe infiltrate.; ; ; Signed by; Charlie Stokes MD 09/21/2016 07:18 P; Outcome: 19:22 Discharge ordered by Provider. mo1 20:03 Discharge Assessment: Patient awake, alert and oriented x 3. No cognitive and/or ttb functional deficits noted. Patient verbalized understanding of disposition instructions. Patient awake and alert. patient administered narcotics - no. The following High Risk Discharge criteria are identified: None. Discharged to home ambulatory, with family. Condition: stable Condition: improved. Discharge instructions given to patient, family, Instructed on discharge instructions, follow up and referral plans. medication usage, no driving heavy equipment, no drinking with medication, Demonstrated understanding of instructions, medications, Pt was receptive of discharge instructions/ teaching. Prescriptions given X albuterol dispensed. No special radiology studies were completed. Property :Personal belongings accompany Pt. 20:06 Patient left the ED. ttb 20:31 Patient left the ED. ttb Signatures: Dispatcher [employer] EDLexus Castillo, Reg Reg Suraj Foster, RN RN mlb1 Mary Loya,RT RT Scott Guevara, ROSARIO SPECIAL ED ASSISTANT dd6 Leonard River Teresa, RN RN ttb Suraj Michel PA PA mo1 Clare Monroe,RN RN ead Chart Complete MTDD
--- NOTE | 2016-09-23 21:33 | EDDOCDS ---
Physician Documentation [facility] Name: Honey Carrasco Age: 50 yrs Sex: Female : 1965 Arrival Date: 09/21/2016 Time: 16:41 Bed PD Private MD: NO PRIMARY PHYSICIAN, . Disposition: 09/21/16 19:22 Discharged to Home/Self Care. Impression: Pneumonia due to other specified bacteria - left lower lobe, Cough, Fever, unspecified. - Condition is Stable. - Discharge Instructions: Fever, Adult, Pneumonia, Adult, Cough, Adult, [id number]. - Prescriptions for Zithromax Z- Sea 250 mg Oral Tablet - take 1 tablet by ORAL route as directed for 5 days Day 1- take two tablets once. Day 2, 3, 4 , 5 take one tablet once daily.; 6 tablet. Albuterol Sulfate 90 mcg/actuation Inhalation HFA Aerosol Inhaler - inhale 2 puff by INHALATION route every 4 hours As needed; 1 Inhaler. Prednisone 20 mg Oral Tablet - take 2 tablet by ORAL route once daily for 5 days; 10 tablet. codeine- guaifenesin 7.5-225 mg/5 mL Oral liquid - take 5 milliliter by ORAL route every 6 hours as needed; 200 milliliter. - Medication Reconciliation, Local Pharmacy Hours form. - Follow up: Private Physician; When: Call to arrange an appointment; Reason: Recheck today's complaints, Continuance of care. - Problem is new. - Symptoms are unchanged. - Notes: continue with tylenol/motrin for fever, albuterol inhaler 1-2 puffs every 4-6hrs, follow up with pmd in 2 days Historical: - Allergies: Naproxen (Rash); - Home Meds: 1. Vitamin C Oral daily - PMHx: none; - PSHx: ; Cataract Surgery- Bilateral; - Social history: Smoking status: Patient states was never smoker of tobacco. No barriers to communication noted, The patient speaks fluent Mohawk, Speaks appropriately for age. - Family history: Not pertinent. - : The pt / caregiver states he / she is not on anticoagulants. Home medication list is obtained from the patient. - Exposure Risk Screening:: None identified. 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 EDMS 18:29 predniSONE 60 mg PO once; administer with food or milk ordered. mo1 18:29 Albuterol-Ipratropium 3 ml Inhalation once ordered. mo1 18:29 azithromycin 500 mg PO once ordered. mo1 18:29 Ibuprofen 800 mg PO once ordered. mo1 18:38 Financial registration complete. dm19 18:51 [facility] Payment Agreement was scanned into [employer] and attached to record. jpb 19:17 cefTRIAXone 1 grams IM once ordered. mo1 19:20 Ventolin Inhaler 2 puffs Inhalation once; 1-2 puffs every 4-6hrs ordered. mo1 19:53 Acetaminophen Tablet 975 mg PO once ordered. mo1 09/23 08:33 T-Sheet-- Draft Copy was scanned into [employer] and attached to record. gb Administered Medications: 09/21 18:50 Drug: predniSONE 60 mg [prednisone 20 mg tablet (3 tabs)] Route: PO; ttb 18:50 Drug: azithromycin 500 mg [azithromycin 250 mg tablet (2 tabs)] Route: PO; ttb 18:50 Drug: Ibuprofen 800 mg [ibuprofen 800 mg tablet (1 tabs)] Route: PO; ttb 19:00 Drug: Albuterol-Ipratropium 3 ml [ipratropium-albuterol 0.5 mg-3 mg(2.5 mg base)/3 mL dk nebulization soln (3 mL)] Route: Inhalation; 19:27 Drug: cefTRIAXone 1 grams [ceftriaxone 1 gram solution for injection (1 grams)] Route: ttb IM; Site: left gluteus; 20:05 Follow up: Response: No Adverse Reaction ttb 19:27 Drug: Ventolin 2 puffs [Ventolin HFA 90 mcg/actuation aerosol inhaler (2 puffs)] {Note: ttb dispensed home.} Route: Inhalation; 19:52 CANCELLED (already givenn): Ibuprofen 800 mg PO once ttb 20:03 Drug: Acetaminophen 975 mg [acetaminophen 325 mg tablet (3 tabs)] Route: PO; ttb Signatures: Dispatcher [employer] Lexus Castañeda, Reg Reg gb Perico Mine Webb RN RN ttb Suraj Michel PA PA mo1 Clare Monroe RN RN eaGris Caal dm19 Mary Loya RT dk The chart was reviewed and I authenticate all verbal orders and agree with the evaluation and treatment provided.Corrections: (The following items were deleted from the chart) 19:52 19:49 Ibuprofen 800 mg PO once ordered. mo1 ttb Attachments: 18:51 [facility] [place] Agreement jpb 09/23 08:33 T-Sheet-- Draft Copy gb Chart Complete MTDD
== END 2016-09-21 20:31 | disposition home or self-care (01) ==
LOC: M ED 16:41
DX: J45.901 Unspecified asthma with (acute) exacerbation (principal); J15.9 Unspecified bacterial pneumonia; R50.9 Fever, unspecified; Z88.8 Allergy status to other drugs, medicaments and biological substances
CPT/HCPCS: 71020; 94640; 96372; 99283; J0696

== ENCOUNTER → 2017-04-04 | Outpatient (CLI) | payer MEDICARE, MEDICAID ==
[~2017-04-04] MED LIST: ALBU17IN INH; AZEL0.1S3; CYCL10TA PO; FLUT1SPR2; LEVO50TA5; ZITHTAB PO
[2017-04-04 15:18] LABS: FREE T4 0.62 NG/DL (0.76-1.46)
== END ==
LOC: M LAB 14:04
PROVIDERS: ATTEND Physician Assistant Medical
DX: R53.83 Other fatigue (principal)

== ENCOUNTER 2017-05-18 13:00 | Emergency (ER) | payer MEDICARE, MEDICAID ==
[~2017-05-18] VITALS: Ht 157.5 cm; Wt 97.4 kg
[2017-05-18] MEDS ORDERED: FLUT1SPR2 (13:09)
[2017-05-18] MEDS ORDERED: LEVO50TA5 (13:09)
[2017-05-18] MEDS ORDERED: AZEL0.1S3 (13:09)
[2017-05-18] MEDS ORDERED: IPRATROPIUM 0.5MG/ALBUTEROL 2.5MG INH SOL UD 3ML (DUONEB)(J7620) NEB ONE (15:00)
[2017-05-18] MEDS ORDERED: ALBUTEROL 90 MCG/ACT 8GM HFA INHALER INH ONE (15:00)
[2017-05-18] MEDS ORDERED: ALBUTEROL SULFATE 2.5 MG/0.5 ML INH NEB SOLN NEB ONE (15:00)
--- NOTE | 2017-05-18 15:45 | REP ---
Chest x-ray: Two views. History: Cough and shortness of breath. . Comparison study: September 21, 2016 . Findings: The lungs are well inflated and free of infiltrate. The pleural angles are sharp. The heart size is normal. Pulmonary vasculature is not increased. No significant bony abnormality is seen. Impression: Negative chest x-ray. Signed by Juan J Stewart MD 05/18/2017 03:37 P
[2017-05-18] MEDS ORDERED: CYCL10TA PO (15:53)
[2017-05-18] MEDS ORDERED: ALBU17IN INH (15:53)
[2017-05-18] MEDS ORDERED: ZITHTAB PO (15:53)
[2017-05-18 15:57] VITALS: BP 145/72
== END 2017-05-18 16:14 | disposition home or self-care (01) ==
LOC: M ED 13:00
DX: J45.901 Unspecified asthma with (acute) exacerbation (principal); J20.9 Acute bronchitis, unspecified; S29.012A Strain of muscle and tendon of back wall of thorax, initial encounter; X58.XXXA Exposure to other specified factors, initial encounter; Y92.89 Other specified places as the place of occurrence of the external cause; Y93.89 Activity, other specified; Y99.9 Unspecified external cause status

== ENCOUNTER → 2017-05-25 | Outpatient (CLI) | payer MEDICARE, MEDICAID | LOC: M LAB 12:42 | PROVIDERS: ATTEND Internal Medicine | DX: R94.6 Abnormal results of thyroid function studies (principal) ==

== ENCOUNTER 2017-06-10 20:25 | Emergency (ER) | payer MEDICARE, MEDICAID ==
[~2017-06-10] VITALS: Ht 160 cm; Wt 100.0 kg
[2017-06-10] MEDS ORDERED: ONDANSETRON 4MG/2ML VIAL (J2405) IV ONE (21:00)
[2017-06-10] MEDS ORDERED: MORPHINE 4 MG/ML 1ML SYRINGE IV PRN (21:00)
[2017-06-10 21:19] LABS: BASO % 0.3 % (0.0-1.0); EOS # 0.1 K/mm3 (0.0-0.50); EOS % 1.2 % (0.0-3.0); LARGE UNSTAINED CELL # 0.1 K/mm3 (0.0-0.4); LARGE UNSTAINED CELL % 1.3 % (0.0-4.0); LYMPH # 1.8 K/mm3 (1.5-4.5); LYMPH % 17.4 % (24.0-44.0); MEAN CORPUSCULAR HEMOGLOBIN 31.6 pg (27.0-33.0); MEAN CORPUSCULAR HGB CONC 34.3 g/dl (32.0-36.5); MEAN CORPUSCULAR VOLUME 92.1 fl (80.0-96.0); MONO # 0.5 K/mm3 (0.0-0.8); NEUTROPHILS # 7.7 K/mm3 (1.8-7.7); NEUTROPHILS % 74.7 % (36.0-66.0); PLATELET COUNT, AUTOMATED 277 k/mm3 (150-450); RED CELL DISTRIBUTION WIDTH 13.8 % (11.5-14.5); WHITE BLOOD COUNT 10.3 K/mm3 (4.0-10.0)
[2017-06-10 21:27] LABS: ANION GAP 8 MEQ/L (8-16); BLOOD UREA NITROGEN 16 MG/DL (7-18); CALCIUM LEVEL 9.1 MG/DL (8.5-10.1); CARBON DIOXIDE LEVEL 27 MEQ/L (21-32); CHLORIDE LEVEL 104 MEQ/L (98-107); CREATININE FOR GFR 0.73 MG/DL (0.55-1.02); GLOMERULAR FILTRATION RATE > 60.0 (>51); GLUCOSE, FASTING 106 MG/DL (70-105); SODIUM LEVEL 139 MEQ/L (136-145)
[2017-06-11 02:04] VITALS: BP 127/73
--- NOTE | 2017-06-11 06:09 | ECGEPIP ---
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
--- NOTE | 2017-06-11 06:10 | ECGEPIP ---
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
--- NOTE | 2017-06-12 07:11 | REP ---
CHEST, TWO VIEWS: COMPARISON: 05/18/2017. There is no evidence of acute infiltrate. No pleural effusion is seen. The heart is normal in size. The mediastinal silhouette is unremarkable. The visualized osseous structures are intact. IMPRESSION: No acute pulmonary disease. Signed by Charlie Stokes MD 06/12/2017 05:27 P
== END 2017-06-11 02:16 | disposition home or self-care (01) ==
LOC: M ED 20:25 → EDBD 20:25 → M ED 06-11 02:16
DX: R07.9 Chest pain, unspecified (principal); E03.9 Hypothyroidism, unspecified
CPT/HCPCS: 71020; 80048; 82550; 82553; 84484; 85025; 93005; 93041; 94760; 96374; 96375; 99285; J2405

== ENCOUNTER → 2017-06-28 | Outpatient (CLI) | payer MEDICARE, MEDICAID ==
[2017-06-28 20:05] LABS: ANION GAP 7 MEQ/L (8-16); BLOOD UREA NITROGEN 12 MG/DL (7-18); CARBON DIOXIDE LEVEL 30 MEQ/L (21-32); CHLORIDE LEVEL 105 MEQ/L (98-107); CREATININE FOR GFR 0.67 MG/DL (0.55-1.02); FREE T4 0.81 NG/DL (0.76-1.46); GLOMERULAR FILTRATION RATE > 60.0 (>51); GLUCOSE, FASTING 109 MG/DL (70-105); PHOSPHORUS LEVEL 4.2 MG/DL (2.5-4.9); POTASSIUM SERUM 3.6 MEQ/L (3.5-5.1); SODIUM LEVEL 142 MEQ/L (136-145)
== END ==
LOC: M LAB 15:57
PROVIDERS: ATTEND Internal Medicine
DX: E03.9 Hypothyroidism, unspecified (principal)

== ENCOUNTER 2017-08-15 12:21 | Emergency (ER) | payer MEDICARE, MEDICAID ==
[~2017-08-15] VITALS: Ht 160 cm; Wt 100.0 kg
[2017-08-15 13:07] LABS: BASO % 0.3 % (0.0-1.0); EOS # 0.2 10^3/uL (0.0-0.50); EOS % 1.5 % (0.0-3.0); IMMATURE GRANULOCYTE % 0.5 % (0-0); LYMPH # 1.4 10^3/uL (1.5-4.5); LYMPH % 13.8 % (24.0-44.0); MEAN CORPUSCULAR HEMOGLOBIN 30.1 pg (27.0-33.0); MEAN CORPUSCULAR HGB CONC 32.9 g/dl (32.0-36.5); MEAN CORPUSCULAR VOLUME 91.6 fl (80.0-96.0); MONO # 0.7 10^3/uL (0.0-0.8); MONO % 6.5 % (0.0-5.0); NEUTROPHILS # 7.9 10^3/uL (1.8-7.7); NEUTROPHILS % 77.4 % (36.0-66.0); PLATELET COUNT, AUTOMATED 272 10^3/uL (150-450); RED CELL DISTRIBUTION WIDTH 14.6 % (11.5-14.5); WHITE BLOOD COUNT 10.1 10^3/uL (4.0-10.0)
[2017-08-15] MEDS ORDERED: ASPIRIN 81 MG CHEW TABLET PO ONE (13:15)
[2017-08-15] MEDS ORDERED: GI COCKTAIL 50ML BTL(HYOSCYAMINE/MAALOX/LIDOCAINE VISCOUS)(1:3:1) PO ONE (13:15)
[2017-08-15 13:16] LABS: INR 0.87
[2017-08-15 13:19] LABS: ANION GAP 8 MEQ/L (8-16); BLOOD UREA NITROGEN 10 MG/DL (7-18); CALCIUM LEVEL 8.9 MG/DL (8.5-10.1); CARBON DIOXIDE LEVEL 29 MEQ/L (21-32); CHLORIDE LEVEL 103 MEQ/L (98-107); CREATININE FOR GFR 0.66 MG/DL (0.55-1.02); GLOMERULAR FILTRATION RATE > 60.0 (>51); GLUCOSE, FASTING 94 MG/DL (70-105); POTASSIUM SERUM 3.9 MEQ/L (3.5-5.1); SODIUM LEVEL 140 MEQ/L (136-145)
[2017-08-15 13:32] LABS: ALBUMIN 3.9 GM/DL (3.2-5.2); ALBUMIN/GLOBULIN RATIO 1.11 (1.00-1.93); BILIRUBIN,DIRECT 0.1 MG/DL (0.0-0.2); BILIRUBIN,TOTAL 0.6 MG/DL (0.2-1.0); TOTAL PROTEIN 7.4 GM/DL (6.4-8.2)
--- NOTE | 2017-08-15 13:32 | REP ---
Clinical: Chest pain . Comparison: 06/10/2017 . Technique: PA and lateral. Findings: The mediastinum and cardiac silhouette are normal. The lung gifford are clear and without acute consolidation, effusion, or pneumothorax. The skeletal structures are intact and normal. Impression: 1. No acute cardiopulmonary process. Signed by Thaddeus Eric MD 08/15/2017 01:24 P
[2017-08-15] MEDS ORDERED: ISOVUE-370 76% 100ML VIAL (Q9967) As Ordered ONE (13:49)
--- NOTE | 2017-08-15 13:50 | REP ---
Clinical: Shortness breath with lower extremity pain . Technique: Stokes scale and color Doppler evaluation using linear high frequency transducer. Findings: Ultrasound examination of the right and left lower extremity deep venous structures from the common femoral vein to the popliteal vein demonstrates normal compressibility flow and wave patterns in response to respiration and augmentation. There is no evidence for deep venous thrombosis. Impression: No evidence for deep venous thrombosis of the bilateral lower extremities. Signed by Thaddeus Eric MD 08/15/2017 01:41 P
--- NOTE | 2017-08-15 14:26 | REP ---
Clinical: Acute chest pain and shortness of breath. Technique: Axial contrast enhanced images from the thoracic inlet to the upper abdomen using 100 ml Isovue 370 intravenous contrast material with coronal and sagittal MIP re-formations. Findings: Satisfactory enhancement of the pulmonary vasculature is achieved and no filling defects are identified to suggest pulmonary embolus. Thoracic aorta is normal caliber without aneurysm or dissection. Heart and pericardium are normal. Bilateral lung gifford are well aerated and clear without acute pulmonary parenchymal consolidation or atelectasis. No nodule or mass lesion. No pleural effusion/reaction. No pneumothorax. No adenopathy. Impression: No evidence for pulmonary embolus. No acute pleuroparenchymal or mediastinal process. Signed by Thaddeus Eric MD 08/15/2017 02:17 P
[2017-08-15 16:35] VITALS: BP 137/82
--- NOTE | 2017-08-16 08:08 | ECGEPIP ---
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
== END 2017-08-15 16:54 | disposition home or self-care (01) ==
LOC: M ED 12:21
DX: R07.9 Chest pain, unspecified (principal); R06.02 Shortness of breath
CPT/HCPCS: 36415; 71020; 71275; 80048; 80076; 82550; 82553; 83690; 83880; 84484; 85025; 85610; 85730; 93005; 93041; 93970; 94760; 99285; Q9967

== ENCOUNTER → 2017-10-17 | Outpatient (CLI) | payer MEDICARE, MEDICAID ==
[2017-10-17 11:48] LABS: FREE T4 0.89 NG/DL (0.76-1.46); THYROID STIMULATING HORMONE 0.697 uIU/ML (0.358-3.740)
== END ==
LOC: M LAB 10:46
DX: E03.9 Hypothyroidism, unspecified (principal)
CPT/HCPCS: 84443

== ENCOUNTER → 2017-12-18 | Outpatient (CLI) | payer MEDICARE, MEDICAID ==
[2017-12-21 00:07] LABS: Lyme Disease IgG/IgM Antibodie <0.91 ISR (0.00-0.90); Lyme Disease IgM Ab Quantitati <0.80 index (0.00-0.79)
== END ==
LOC: M LAB 15:33
DX: R53.83 Other fatigue (principal)
CPT/HCPCS: 36415

== ENCOUNTER 2018-03-07 11:33 | Emergency (ER) | payer MEDICARE, MEDICAID ==
[2018-03-07] MEDS: ADACEL/BOOSTRIX VACCINE (DIPHTH/PERTUSS/ACELL/TETANUS)0.5ML SYR (90715) IM (12:31)
== END 2018-03-07 14:18 | disposition home or self-care (01) ==
LOC: M ED 11:33
DX: S91.332A Puncture wound without foreign body, left foot, initial encounter (principal); W45.0XXA Nail entering through skin, initial encounter; Y92.89 Other specified places as the place of occurrence of the external cause; Z79.899 Other long term (current) drug therapy; Z88.8 Allergy status to other drugs, medicaments and biological substances
CPT/HCPCS: 90715

== ENCOUNTER → 2018-12-20 | Outpatient (CLI) | payer MEDICARE, MEDICAID ==
[~2018-12-20] MED LIST changes: +KEFL500C17 PO
[2018-12-20 11:32] LABS: FREE T4 0.93 NG/DL (0.76-1.46); THYROID STIMULATING HORMONE 0.857 uIU/ML (0.358-3.740)
== END ==
LOC: M LAB 10:22
PROVIDERS: ATTEND Internal Medicine
DX: E03.9 Hypothyroidism, unspecified (principal)

== ENCOUNTER → 2019-05-03 | Outpatient (CLI) | payer MEDICARE, MEDICAID ==
[2019-05-03 13:01] LABS: FREE T4 1.04 NG/DL (0.76-1.46); THYROID STIMULATING HORMONE 0.194 uIU/ML (0.358-3.740)
== END ==
LOC: M LAB 11:53
PROVIDERS: ATTEND Internal Medicine Interventional Cardiology
DX: E03.9 Hypothyroidism, unspecified (principal)

== ENCOUNTER 2019-06-03 07:53 | Emergency (ER) | payer MEDICARE, MEDICAID ==
[~2019-06-03] VITALS: Ht 160 cm; Wt 90.9 kg
[2019-06-03] MEDS ORDERED: MELO7.5T35 (08:13)
[2019-06-03] MEDS ORDERED: SYNT75TA (08:13)
[2019-06-03] MEDS ORDERED: CYCL10TA PO (08:13)
[2019-06-03 09:02] LABS: ABG BASE EXCESS -0.8 (-2.0-2.0); ABG HCO3 24.3 MEQ/L (22.0-26.0); ABG O2 SATURATION 96.8 % (95.0-99.0); ABG STANDARD HCO3 23.8 MEQ/L (22.0-26.0); ABG TOTAL CO2 25.6 MEQ/L (22.0-29.0); ABG pH (ARTERIAL) 7.381 UNITS (7.350-7.450)
[2019-06-03 09:04] LABS: BASO % 0.2 % (0.0-1.0); EOS # 0.1 10^3/uL (0.0-0.5); EOS % 0.9 % (0.0-3.0); HEMATOCRIT 39.3 % (36.0-47.0); HEMOGLOBIN 12.6 g/dl (12.0-15.5); LYMPH # 0.9 10^3/uL (1.5-5.0); LYMPH % 7.4 % (24.0-44.0); MEAN CORPUSCULAR HGB CONC 32.1 g/dl (32.0-36.5); MEAN CORPUSCULAR VOLUME 96.8 fl (80.0-96.0); MONO # 0.6 10^3/uL (0.0-0.8); MONO % 4.8 % (0.0-5.0); NEUTROPHILS % 86.4 % (36.0-66.0); PLATELET COUNT, AUTOMATED 228 10^3/uL (150-450); RED BLOOD COUNT 4.06 10^6/uL (4.00-5.40); WHITE BLOOD COUNT 11.5 10^3/uL (4.0-10.0)
[2019-06-03 09:34] LABS: BLOOD UREA NITROGEN 13 MG/DL (7-18); CALCIUM LEVEL 8.6 MG/DL (8.5-10.1); CARBON DIOXIDE LEVEL 27 MEQ/L (21-32); CHLORIDE LEVEL 107 MEQ/L (98-107); CK-MB VALUE MASS 2.9 NG/ML (<3.6); CPK CREATINE PHOSPHOKINASE 250 U/L (26-192); CREATININE FOR GFR 0.69 MG/DL (0.55-1.30); FREE T4 1.05 NG/DL (0.76-1.46); GLOMERULAR FILTRATION RATE > 60.0 (>51); GLUCOSE, FASTING 94 MG/DL (70-100); MB/CK RELATIVE INDEX 1.16 (< OR =4); NT-PRO BNP 148 PG/ML (<125); POTASSIUM SERUM 3.6 MEQ/L (3.5-5.1); SODIUM LEVEL 141 MEQ/L (136-145); THYROID STIMULATING HORMONE 0.168 uIU/ML (0.358-3.740); TROPONIN I < 0.02 NG/ML (< 0.10)
--- NOTE | 2019-06-03 10:07 | REP ---
CHEST, SINGLE VIEW: Single view of the chest is performed and compared to prior studies, most recent of which is 08/15/2017. There is mild patchy atelectasis or infiltrate in the left lung base. Right lung is clear. Heart does not appear to be significantly enlarged. Mediastinal silhouette is unchanged. There are degenerative changes of the spine. IMPRESSION: Mild left basilar atelectasis/infiltrate. Electronically Signed by Charlei Stokes MD 06/03/2019 04:08 P
[2019-06-03 10:54] VITALS: O2SAT 100
[2019-06-03 11:50] VITALS: BP 155/85
[2019-06-03 12:30] LABS: CK-MB VALUE MASS 2.4 NG/ML (<3.6); CPK CREATINE PHOSPHOKINASE 230 U/L (26-192); MB/CK RELATIVE INDEX 1.04 (< OR =4); TROPONIN I < 0.02 NG/ML (< 0.10)
--- NOTE | 2019-06-04 04:35 | ECGEPIP ---
[facility] - ED Test Date: 2019-06-03 Pat Name: YARA THOMAS Department: Room: - Gender: Female Compliance Lead: HERMILO : 1965 Requested By: Alexandro Emery Order Number: [id number] Reading MD: Alexandro Rao Measurements Intervals [place] Rate: 83 P: 60 [place]: 149 QRS: 34 QRSD: 93 T: -13 QT: 376 QTc: 442 Interpretive Statements SINUS RHYTHM NONSPECIFIC ST & T-WAVE ABNORMALITY SIMILAR TO 08/15/17 Electronically Signed on 06-04-2019 4:34:54 EDT by Alexandro Rao
--- NOTE | 2019-06-04 04:45 | ECGEPIP ---
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
== END 2019-06-03 12:38 | disposition left against medical advice (07) ==
LOC: M ED 07:53
DX: R07.89 Other chest pain (principal); R06.02 Shortness of breath; F33.9 Major depressive disorder, recurrent, unspecified; M25.512 Pain in left shoulder; E07.9 Disorder of thyroid, unspecified; Z79.899 Other long term (current) drug therapy

== ENCOUNTER → 2020-04-29 | Outpatient (CLI) | payer MEDICARE, MEDICAID ==
[~2020-04-29] MED LIST changes: +CYCL-707 PO; -CYCL10TA PO; +MELO7.5T35; +SYNT75TA
--- NOTE | 2020-06-23 09:37 | REP ---
LEFT HIP X-RAY: 2-VIEWS HISTORY: Pain. FINDINGS: 2-views of the left hip are performed. No acute fracture or dislocation is seen. There is mild tendinous calcification along the greater trochanter. There is very mild degenerative change at the hip joint with very mild joint space narrowing on subchondral sclerosis and spurring. IMPRESSION: Mild degenerative changes. MTDD
--- NOTE | 2020-06-23 09:38 | REP ---
LEFT KNEE SERIES: 5-VIEWS HISTORY: Pain. FINDINGS: 5-views of the left knee are performed. There is no acute fracture or dislocation. There is mild medial joint space narrowing with subchondral sclerosis and spurring. There is mild spurring of the lateral patellar facet. There is also mild superior patellar spurring. IMPRESSION: Mild degenerative changes. MTDD
== END ==
LOC: M RAD 16:07
PROVIDERS: ATTEND Physician Assistant Medical
DX: M25.752 Osteophyte, left hip (principal); M25.762 Osteophyte, left knee

== ENCOUNTER → 2020-12-15 | Outpatient (CLI) | payer MEDICARE, MEDICAID ==
--- NOTE | 2020-12-16 19:13 | REP ---
INDICATION: PAIN COMPARISON: None. TECHNIQUE: AP, lateral, bilateral oblique views right and left ankle. FINDINGS: Right ankle demonstrates mild age-related cortical irregularity and small spurs along the medial and lateral malleoli. The ankle mortise appears intact. Lateral view demonstrates small to moderate calcaneal heel spur. No evidence for acute or healed injury. Calcification at the Achilles tendon insertion noted. Left ankle demonstrates minimal cortical age-related changes. Ankle mortise appears intact. No evidence for acute or healed injury. Calcification at the Achilles tendon insertion noted. IMPRESSION: Mild arthritic changes (right greater than left). <Electronically signed by Thaddeus Eric > 12/16/20 [id number]
--- NOTE | 2020-12-16 19:17 | REP ---
INDICATION: PAIN COMPARISON: None. TECHNIQUE: AP, lateral, bilateral oblique views right and left hand. FINDINGS: Right hand demonstrates mild age related arthritic changes primarily involving the 1st metacarpophalangeal (MCP) and 1st through 5th distal interphalangeal (IP) joints. Findings include subtle subchondral sclerosis, very minimal early marginal spurring and minimal joint space narrowing. No further significant osteoarthritic or inflammatory arthritic changes appreciated. No evidence for acute or healed injury. Left hand demonstrates mild age related arthritic changes involving the 1st metacarpophalangeal joint and 1st through 5th interphalangeal joints findings include subchondral sclerosis with minimal joint space narrowing. No further significant osteoarthritic or inflammatory arthritic changes appreciated. No evidence for acute or healed injury. IMPRESSION: Relatively mild age-related arthritic changes primarily involving the 1st MCP and 1st through 5th IP joints. <Electronically signed by Thaddeus Eric > 12/16/20 [id number]
== END ==
LOC: M WUC 14:35
PROVIDERS: ATTEND Nurse Practitioner Family
DX: M18.12 Unilateral primary osteoarthritis of first carpometacarpal joint, left hand (principal); M19.049 Primary osteoarthritis, unspecified hand; M77.30 Calcaneal spur, unspecified foot; M65.262 Calcific tendinitis, left lower leg; M25.571 Pain in right ankle and joints of right foot; G89.29 Other chronic pain; M25.572 Pain in left ankle and joints of left foot; M79.641 Pain in right hand; M79.642 Pain in left hand

== ENCOUNTER → 2021-01-01 | Outpatient (CLI) | payer MEDICARE, MEDICAID ==
--- NOTE | 2021-01-01 16:10 | REP ---
INDICATION: PAIN, EROSIVE CHANGE COMPARISON: None. TECHNIQUE: Five views bilateral knees. FINDINGS: There is no evidence of acute fracture, dislocation, or intrinsic bone disease.There is minimal medial joint space narrowing bilaterally with minimal subchondral sclerosis in the medial tibial plateaus. There is mild superior patellar spurring bilaterally at the insertion of the quadriceps tendon. There is very mild lateral patellofemoral compartment narrowing bilaterally with tiny spurs of the lateral patellar facets. There may be small suprapatellar effusions bilaterally. IMPRESSION: No fracture or dislocation. Very mild bilateral degenerative changes. <Electronically signed by Charlie Stokes > 01/01/21 [id number]
== END ==
LOC: M WUC 15:32
PROVIDERS: ATTEND Nurse Practitioner Family
DX: M17.0 Bilateral primary osteoarthritis of knee (principal); M25.561 Pain in right knee; M25.562 Pain in left knee; G89.29 Other chronic pain

== ENCOUNTER → 2021-05-26 | Outpatient (REF) | payer MEDICARE, MEDICAID | LOC: M LAB REF 21:59 | PROVIDERS: ATTEND Physician Assistant | DX: R53.83 Other fatigue (principal) ==

== ENCOUNTER → 2021-05-28 | Outpatient (CLI) | payer MEDICARE, MEDICAID ==
--- NOTE | 2021-05-28 15:45 | REP ---
INDICATION: COUGH AND CONGESTION COMPARISON: 06/03/2019. TECHNIQUE: PA/Lateral FINDINGS: There are diffuse bilateral reticulonodular infiltrates. Heart is not significantly enlarged. The mediastinal silhouette is unchanged. There are degenerative changes of the spine without compression fracture. IMPRESSION: Diffuse reticulonodular infiltrates bilaterally. Differential diagnosis includes inflammatory and neoplastic etiologies. Recommend follow-up to resolution. CT recommended if these infiltrates do not resolve. <Electronically signed by Charlie Stokes > 05/28/21 [id number]
== END ==
LOC: M WUC 15:25
PROVIDERS: ATTEND Physician Assistant
DX: R05 Cough (principal); R91.8 Other nonspecific abnormal finding of lung field

== ENCOUNTER → 2021-05-31 | Outpatient (CLI) | payer MEDICARE, MEDICAID ==
[~2021-05-31] MED LIST changes: +ISOVUE-370 76% 100ML VIAL As Ordered ONE
--- NOTE | 2021-05-31 13:30 | REP ---
INDICATION: QUIRINO DIFFUSE INFILTRATION COMPARISON: 08/15/2017 the latest prior TECHNIQUE: Standard helical technique after the intravenous administration of 100 cc Isovue 370. FINDINGS: Right hilar and subcarinal adenopathy has developed since the last exam. There are prominent left hilar nodes which have also developed. There are no pleural or pericardial effusions. The imaged upper abdomen and imaged osseous structures are within normal limits and essentially unchanged. Evaluation of the lung gifford shows scattered patchy airspace opacities all of which represent a change from the prior exam. IMPRESSION: There is patchy pneumonia and evidence of adenopathy as described above. Does this patient have COVID-19? <Electronically signed by Cm Haynes > 05/31/21 [id number]
== END ==
LOC: M RAD 12:40
PROVIDERS: ATTEND Physician Assistant
DX: J18.9 Pneumonia, unspecified organism (principal)
CPT/HCPCS: 71260; Q9967

== ENCOUNTER → 2021-09-23 | Outpatient (CLI) | payer MEDICARE, MEDICAID ==
[~2021-09-23] MED LIST changes: -ISOVUE-370 76% 100ML VIAL As Ordered ONE
== END ==
LOC: M WUC 11:37
PROVIDERS: ATTEND Physician Assistant
DX: R06.02 Shortness of breath (principal)

== ENCOUNTER 2021-11-12 16:33 | Emergency (ER) | payer MEDICARE, MEDICAID ==
[~2021-11-12] VITALS: Ht 160 cm; Wt 97.7 kg
[2021-11-12] MEDS ORDERED: KETOROLAC TROMETHAMINE 10 MG TAB PO ONE (20:30)
[2021-11-12 20:38] VITALS: BP 150/90
== END 2021-11-12 21:01 | disposition home or self-care (01) ==
LOC: M ED 16:33
DX: S01.01XA Laceration without foreign body of scalp, initial encounter (principal); W01.0XXA Fall on same level from slipping, tripping and stumbling without subsequent striking against object, initial encounter; Y92.018 Other place in single-family (private) house as the place of occurrence of the external cause; E03.9 Hypothyroidism, unspecified; I34.1 Nonrheumatic mitral (valve) prolapse; K21.9 Gastro-esophageal reflux disease without esophagitis; Z79.899 Other long term (current) drug therapy; Z79.890 Hormone replacement therapy

== ENCOUNTER → 2022-12-09 | Outpatient (CLI) | payer MEDICARE, MEDICAID | LOC: M WUC 12:47 | PROVIDERS: ATTEND Physician Assistant Medical | DX: R05.9 Cough, unspecified (principal) ==

== ENCOUNTER → 2023-01-17 | Outpatient (CLI) | payer MEDICARE, MEDICAID ==
[2023-01-17 11:28] LABS: HEMATOCRIT 43.3 % (36.0-47.0); MEAN CORPUSCULAR HEMOGLOBIN 30.2 pg (27.0-33.0); MEAN CORPUSCULAR HGB CONC 32.3 g/dl (32.0-36.5); MEAN CORPUSCULAR VOLUME 93.3 fl (80.0-96.0); PLATELET COUNT, AUTOMATED 266 10^3/uL (150-450); RED BLOOD COUNT 4.64 10^6/uL (4.00-5.40); WHITE BLOOD COUNT 8.9 10^3/uL (4.0-10.0)
[2023-01-17 11:42] LABS: HEMOGLOBIN A1c 5.5 % (4.0-6.0)
[2023-01-17 11:49] LABS: ALBUMIN 3.8 G/DL (3.2-5.2); ALKALINE PHOSPHATASE 88 U/L (46-116); ALT/SGPT 24 U/L (7.0-40); AST/SGOT 17 U/L (<34); BILIRUBIN,TOTAL 0.8 MG/DL (0.3-1.2); BLOOD UREA NITROGEN 14 MG/DL (9-23); CALCIUM LEVEL 9.2 MG/DL (8.5-10.1); CARBON DIOXIDE LEVEL 28 MMOL/L (20-31); CHLORIDE LEVEL 104 MMOL/L (98-107); CHOLESTEROL LEVEL 198 MG/DL (<200); CHOLESTEROL RISK RATIO 4.66 (<5); CREATININE FOR GFR 0.75 MG/DL (0.55-1.30); GLOMERULAR FILTRATION RATE > 60.0 (>51); GLUCOSE, FASTING 92 MG/DL (60-100); HDL CHOLESTEROL 42.4 MG/DL (>40); LDL CHOLESTEROL 125.2 MG/DL (<100); NON-HDL-C 155.6 MG/DL; POTASSIUM SERUM 4.1 MMOL/L (3.5-5.1); SODIUM LEVEL 139 MMOL/L (136-145); TOTAL PROTEIN 7.1 G/DL (5.7-8.2); TRIGLYCERIDES LEVEL 152 MG/DL (<150)
[2023-01-17 11:51] LABS: THYROID STIMULATING HORMONE 0.408 uIU/ML (0.55-4.78)
[2023-01-17 11:52] LABS: TOTAL 25(OH) VITAMIN D 23.1 NG/ML (20.0-100.0)
== END ==
LOC: M RAD 10:36
PROVIDERS: ATTEND Family Medicine
DX: I10 Essential (primary) hypertension (principal); R53.83 Other fatigue; E03.9 Hypothyroidism, unspecified; M48.14 Ankylosing hyperostosis [Forestier], thoracic region

== ENCOUNTER → 2024-06-19 | Outpatient (CLI) | payer MEDICARE, MEDICAID | LOC: M WUC 15:23 | PROVIDERS: ATTEND Specialist | DX: R05.3 Chronic cough (principal) ==

== ENCOUNTER → 2024-10-01 | Outpatient (CLI) | payer MEDICARE, MEDICAID | LOC: M WUC 11:44 | PROVIDERS: ATTEND Family Medicine | DX: I10 Essential (primary) hypertension (principal); R53.83 Other fatigue; E03.9 Hypothyroidism, unspecified ==

== ENCOUNTER → 2024-10-05 | Outpatient (CLI) | payer MEDICARE, MEDICAID | LOC: M EKG 14:32 | PROVIDERS: ATTEND Family Medicine | DX: I10 Essential (primary) hypertension (principal); R53.83 Other fatigue; E03.9 Hypothyroidism, unspecified; R94.31 Abnormal electrocardiogram [ECG] [EKG] ==

== ENCOUNTER → 2024-10-09 | Outpatient (CLI) | payer MEDICARE, MEDICAID | LOC: M PLAIMG 10:33 | PROVIDERS: ATTEND Internal Medicine Pulmonary Disease | DX: R06.00 Dyspnea, unspecified (principal) ==

== ENCOUNTER → 2024-11-14 | Outpatient (CLI) | payer MEDICARE, MEDICAID ==
[~2024-11-14] MED LIST changes: +METHACHOLINE KIT (6 VIAL.NEB PREMIX) INH ONE
== END ==
LOC: M CARPUL 12:41
PROVIDERS: ATTEND Internal Medicine Pulmonary Disease
DX: R05.9 Cough, unspecified (principal)
CPT/HCPCS: 94070; 95070; J7674

== ENCOUNTER → 2024-12-02 | Outpatient (CLI) | payer MEDICARE, MEDICAID ==
[~2024-12-02] MED LIST changes: +ISOVUE-370 76% 100ML VIAL ONE; -METHACHOLINE KIT (6 VIAL.NEB PREMIX) INH ONE
== END ==
LOC: M PLAIMG 11:37
PROVIDERS: ATTEND Internal Medicine Pulmonary Disease
DX: R06.00 Dyspnea, unspecified (principal)
CPT/HCPCS: 71275; Q9967

== ENCOUNTER → 2025-04-03 | Outpatient (CLI) | payer MEDICARE, MEDICAID ==
[~2025-04-03] MED LIST changes: -ISOVUE-370 76% 100ML VIAL ONE
== END ==
LOC: M RAD 14:34
PROVIDERS: ATTEND Physician Assistant
DX: M25.561 Pain in right knee (principal)

== ENCOUNTER → 2025-09-17 | Outpatient (CLI) | payer MEDICARE, MEDICAID ==
[2025-09-17 17:01] LABS: PLATELET COUNT, AUTOMATED 286 10^3/uL (150-450)
[2025-09-17 17:30] LABS: CALCIUM LEVEL 8.9 MG/DL (8.3-10.6); CARBON DIOXIDE LEVEL 28 MMOL/L (20-31); CHLORIDE LEVEL 106 MMOL/L (98-107); CREATININE FOR GFR 0.67 MG/DL (0.55-1.30); GLOMERULAR FILTRATION RATE > 90.0 (>45); POTASSIUM SERUM 3.9 MMOL/L (3.5-5.1); SODIUM LEVEL 144 MMOL/L (136-145)
[2025-09-17 17:32] LABS: FREE T4 1.23 NG/DL (0.89-1.76)
[2025-09-17 17:35] LABS: TOTAL 25(OH) VITAMIN D 37.6 NG/ML (20.0-100.0)
[2025-09-17 17:46] LABS: INR 0.96
== END ==
LOC: M WUC 15:23
PROVIDERS: ATTEND Student in an Organized Health Care Education/Training Program
DX: Z01.812 Encounter for preprocedural laboratory examination (principal); Z79.899 Other long term (current) drug therapy